=== PATIENT | male | born 2000 | race Caucasian/White ===

== ENCOUNTER 2021-02-18 12:58 | Emergency (ER) | payer MEDICAID, SELFPAY ==
--- NOTE | 2021-02-18 13:00 | DI.RAD_ITS ---
Exam(s) XR FOREARM LT EXAM: XR FOREARM LT CLINICAL HISTORY: window glass vs arm. TECHNIQUE: 2D digital imaging was performed of the left forearm. Four views were obtained. AP and lateral views were obtained. COMPARISON: No exams were available for comparison FINDINGS: BONES: No acute fracture is present. No bony destructive lesion is seen. Visualized portion of elbow and wrist joints are unremarkable. SOFT TISSUE: There is a laceration at the anterior aspect of the distal forearm. On the lateral view timed at 1339 hours there is a rounded opacity in the soft tissues of the anterior distal forearm de ep to the laceration. This was not identified on the AP view from the same time and was felt to be a rtifact or an external object. The patient was brought back to the radiology department and repeat v iews of the forearm were obtained which show no radiopaque foreign body present. IMPRESSION: 1. Skin laceration at the anterior aspect of the distal left forearm. 2. No radiopaque foreign body. 3. Findings were discussed with the emergency department on the date of the examination. DATA REPOSITORY: RADIATION DOSE DELIVERED:
[2021-02-18 13:02] VITALS: BP 138/117; PULSE 64; RESP 18; TEMP 36.8; O2SAT 97
--- NOTE | 2021-02-18 13:48 | W.ED.GENAD ---
Discharge Plan Disposition Patient Disposition: HOME Condition: Stable Discharge Details Clinical Impression: Forearm laceration Primary Care Provider: Unknown,Unknown ED Provider: Stefan Young Home Meds and New Rx's Prescriptions: No Action No Known Home Meds RF: 0 Discharge Instructions Instructions: Laceration (ED) Additional Instructions: Laceration repaired without any difficulty. Rest, elevate, cool compresses every 2 hours for 20 minutes. [id number] Tylenol and/or Motrin as directed for discomfort. Please watch for new or worsening symptoms and return to the ER for any concerns. Tetanus status was updated today. Sutures should be removed in the next 10-14 days, please return to the ER at that time Discharge Data Discharge Date/Time-TO BE ENTERED AT DEPARTURE: 02/18/21 15:30 Medical Decision Making 20-year-old gentleman, [id number], tetanus status up-to-date presents for a left forearm laceration. Neuro, vascular, tendon intact. No obvious foreign body. Will obtain x-ray of the forearm to rule out potential foreign body and/or bony abnormality. Will update tetanus and the laceration will require repair. X-ray unremarkable, spoke with in-house radiologist. Tetanus updated. Laceration repaired without difficulty. Patient tolerated well. Antibiotic dressing then applied. Imaging Data Radiologic Study: Attestation: I personally reviewed and interpreted this imaging study as follows: Imaging: X-Ray Radiologist's impression: Exam(s) XR FOREARM LT EXAM: XR FOREARM LT CLINICAL HISTORY: window glass vs arm. TECHNIQUE: 2D digital imaging was performed of the left forearm. Four views were obtained. AP and lateral views were obtained. COMPARISON: No exams were available for comparison FINDINGS: BONES: No acute fracture is present. No bony destructive lesion is seen. Visualized portion of elbow and wrist joints are unremarkable. SOFT TISSUE: There is a laceration at the anterior aspect of the distal forearm. On the lateral view timed at 1339 hours there is a rounded opacity in the soft tissues of the anterior distal forearm deep to the laceration. This was not identified on the AP view from the same time and was felt to be artifact or an external object. The patient was brought back to the radiology department and repeat views of the forearm were obtained which show no radiopaque foreign body present. IMPRESSION: 1. Skin laceration at the anterior aspect of the distal left forearm. 2. No radiopaque foreign body. 3. Findings were discussed with the emergency department on the date of the examination. HPI General Mode of arrival: ambulatory. Date/Time Provider Initiated Documentation: 02/18/21 13:08. Limitations to Documentation: no limitations. Information obtained by: patient. HPI Narrative: This is a 20-year-old male, [id number], denies any significant past medical history, tetanus status not up-to-date, presenting for a left forearm laceration. Patient states that a window accidentally fell, the glass broke cutting his left forearm. Reports the pain is mild to moderate but worse with movement. Reports mild localized tingling but no true numbness or weakness. Denies active bleeding or obvious foreign body. Denies any other injury. Did not take any medication for his symptoms Related Data Home Medications Medication Instructions Recorded Confirmed Unknown [No Known Home Meds] 02/18/21 02/18/21 Allergies Allergy/AdvReac Type Severity Reaction Status Date / Time No Known Allergies Allergy Unverified 02/18/21 13:05 General Stated Complaint: Laceration LISA: 4 Review of Systems Constitutional Constitutional: Denies fever(s) and Denies weakness Gastrointestinal Gastrointestinal: Denies nausea and Denies vomiting Musculoskeletal Musculoskeletal: Denies arthralgias, Denies numbness and Reports tingling Integumentary/Breasts Skin/Breast: Denies erythema Neurologic Neurologic: Denies numbness, Reports tingling and Denies weakness [facility] Social History Smoking/Tobacco Use Status: Current every day Tobacco Type: cigarettes Smoking risk assessment performed?: Yes Alcohol Intake: never Drug use: Daily Substance use type: marijuana Do you feel safe at home: Yes Do you feel safe in your relationship?: Yes Exam Const General: cooperative, healthy appearing, comfortable, no acute distress and anxious Orientation: alert and awake HENMT Head: normal to inspection, normocephalic and atraumatic Eyes General: appearance normal, both eyes and all related structures Conjunctivae: conjunctivae normal Neck Neck: normal visual inspection, trachea midline and supple Resp Effort & Inspection: normal respiratory effort and able to speak in complete sentences Cardio Rate: regular rate Rhythm: regular rhythm Skin General skin exam: no rashes or lesions noted Neuro General: patient alert, patient awake, moves all extremities and no focal motor deficits Cognition: normal cognition Speech: speech normal Gait: normal gait Motor: muscle tone normal throughout and strength 5/5 throughout Sensory Exam: no sensory deficits noted Extrem General: full ROM and capillary refill normal Left upper extremity: full ROM and normal capillary refill Elbow/forearm/wrist images: 1. There is a slightly irregular 4.5 cm laceration, no active bleeding. There is no obvious foreign body. Diffuse mild discomfort. Neuro, vascular, tendon intact, identified strength of the elbow, wrist, hands. Normal radial pulse and capillary refill. Psych Appearance: grossly normal Mental Status: mental status grossly normal Course Vital Signs Vital signs: Vital Signs Temperature 36.8 C 02/18/21 13:02 Pulse 64 02/18/21 13:02 Respiratory Rate 18 02/18/21 13:02 Blood Pressure 138/117 H 02/18/21 13:02 Pulse Oximetry 97 02/18/21 13:02 Temperature 36.8 C 02/18/21 13:02 Temperature Source Temporal Artery Scan 02/18/21 13:02 Pulse 64 02/18/21 13:02 Respiratory Rate 18 02/18/21 13:02 Respiratory Effort Non-Labored 02/18/21 13:05 Blood Pressure 138/117 H 02/18/21 13:02 Blood Pressure Position Sitting 02/18/21 13:02 Pulse Oximetry 97 02/18/21 13:02 Oxygen Delivery Method Room Air 02/18/21 13:02 Oxygen Flow Rate 0 02/18/21 13:02 Pain Level 10 02/18/21 13:07 Procedures Laceration Laceration 1: Site: upper extremity Side (If applicable): left Size (cm): 4.5 Description: irregular and clean Depth: simple, single layer Local Anesthetic: Lidocaine 1%, Bupivicaine 0.5%, with Epi and other anesthetic ([id number] mixture) Amount of anesthesia used (mL): 8 Pre-repair: wound explored, irrigated extensively and deep structures intact Size (cm): 4-0 Number of sutures: 9 Technique: simple, interrupted
[2021-02-18] MEDS: Bupivacaine 0.5% Pres-Free 30 ML VIAL (13:49)
== END 2021-02-18 15:30 | disposition home or self-care (01) ==
LOC: ER 15:10
PROVIDERS: Emergency Provider Physician Assistant
DX: S51.812A Laceration without foreign body of left forearm, initial encounter (principal); W25.XXXA Contact with sharp glass, initial encounter
CPT/HCPCS: 12002; 90471; 99281; 73090

== ENCOUNTER 2021-02-28 02:01 | Emergency (ER) | payer MEDICAID, SELFPAY ==
[2021-02-28 02:13] VITALS: BP 128/73; PULSE 64; RESP 20; TEMP 36.6; O2SAT 97
--- NOTE | 2021-02-28 02:20 | ED.GENADUL_ITS ---
Discharge Plan Disposition Patient Disposition: HOME Condition: Good Discharge Details Clinical Impression: Posttraumatic wound infection Primary Care Provider: Unknown,Unknown ED Provider: Brett Whittaker Meds and New Rx's Prescriptions: New cephalexin 500 mg capsule 500 mg PO Q8H Qty: 20 RF: 0 Discharge Instructions Instructions: Wound Infection (ED) Additional Instructions: Gently clean the wound once to twice a day with half peroxide/half water. Reapply dressing and keep covered. Take antibiotic as directed and complete the course. Use ibuprofen or acetaminophen for pain. Keep your arm elevated. Return to the ED for worsening pain, redness, fever. Wound edges may separate as the laceration is not completely healed. If that occurs simply keep very cl denilson. Will heal from inside out. Follow-up with primary care next week for wound check. Medical Decision Making Patient with posttraumatic wound infection. Previous x-ray did not show foreign body. Patient sustained a cut on glass. Procedure note reviewed. Sutures removed by me. Wound did not immediately dehisce. Did open slightly. There is no fluctuance or drainage at this time. Wound cleansed and dressed by nursing. Patient started on cephalexin 500 mg 3 times a day. Wound and dressing care twice a day. Keep arm elevated. Return to ED if worse. Wound check by PCP next week. HPI General Mode of arrival: ambulatory . Date/Time Provider Initiated Documentation: 02/28/21 02:06 . Limitations to Documentation: no limitations . Information obtained by: patient, RN notes reviewed and old records reviewed . HPI Narrative: Patient presents to the ED with pain and redness around previous laceration that was repaired here on the . Patient reports that he started to have pain and redness about 3 days ago. It has become worse and at times drained pus-like material. He has been using ibuprofen and acetaminophen for pain. He denies fever or feeling unwell otherwise. Pain not allowing him to sleep tonight so he came in for evaluation. Related Data Home Medications Medication Instructions Recorded Confirmed cephalexin 500 mg PO Q8H #20 cap 02/28/21 Previous Rx's Medication Instructions Recorded cephalexin 500 mg PO Q8H #20 cap 02/28/21 Allergies Allergy/AdvReac Type Severity Reaction Status Date / Time No Known Allergies Allergy Unverified 02/28/21 02:16 General Stated Complaint: Recheck LISA: 5 Review of Systems Narrative: As documented in HPI otherwise negative as below. Const: no fever, chills, weakness Resp: no cough, SOB, pleuritic pain CV: no CP, diaphoresis, edema, syncope GI: no abdominal pain, nausea, vomiting, diarrhea Neuro: no headache, numbness, focal weakness, confusion [facility] Medical History No significant past medical history Surgical History No significant past surgical history Social History Smoking/Tobacco Use Status: Current every day Tobacco Type: cigarettes Smoking risk assessment performed?: Yes Alcohol Intake: never Drug use: Daily Substance use type: marijuana Do you feel safe at home: Yes Do you feel safe in your relationship?: Yes Exam Narrative Exam Narrative: Const: WDWN male in NAD. HEENT: NC/AT. Normal facial exam. Eyes: Normal conjunctiva and sclera. Neck: Supple. Trachea midline. Lungs: Normal respiratory effort. Cor: Good radial pulses. Neuro: A+O x 3. Normal speech, mentation, gait. Cranial nerves II - XII grossly intact. No gross motor or sensory deficit. Ext: No C/C/E. Normal range of motion throughout. Skin: Warm and dry with left forearm laceration with sutures in place. Surrounding erythema and induration approximately 2 cm around the wound. Clear serous drainage noted. No pus. Course Vital Signs Vital signs: Vital Signs Temperature 97.9 F 02/28/21 02:13 Pulse 64 02/28/21 02:13 Respiratory Rate 20 02/28/21 02:13 Blood Pressure 128/73 02/28/21 02:13 Pulse Oximetry 97 02/28/21 02:13 Temperature 97.9 F 02/28/21 02:13 Temperature Source Temporal Artery Scan 02/28/21 02:13 Pulse 64 02/28/21 02:13 Respiratory Rate 20 02/28/21 02:13 Respiratory Effort 02/28/21 02:17 Blood Pressure 128/73 02/28/21 02:13 Blood Pressure Position Sitting 02/28/21 02:13 Pulse Oximetry 97 02/28/21 02:13 Oxygen Delivery Method Room Air 02/28/21 02:13 Oxygen Flow Rate 0 02/28/21 02:13 Pain Level 5 02/28/21 02:13
[2021-02-28] MEDS: Hydrogen Peroxide 3% 480 ML BTL (02:41)
[2021-02-28] MEDS: Cephalexin 500 MG CAP (02:41)
== END 2021-02-28 03:11 | disposition home or self-care (01) ==
PROVIDERS: Emergency Provider Emergency Medicine
DX: S51.812D Laceration without foreign body of left forearm, subsequent encounter (principal); L08.89 Other specified local infections of the skin and subcutaneous tissue; W25.XXXD Contact with sharp glass, subsequent encounter; Z48.02 Encounter for removal of sutures
CPT/HCPCS: 99283; 99282

== ENCOUNTER 2021-04-11 15:03 | Emergency (ER) | payer MEDICAID, SELFPAY ==
[2021-04-11 15:18] VITALS: BP 117/67; PULSE 79; RESP 16; TEMP 36.3; O2SAT 100
--- NOTE | 2021-04-11 15:27 | ED.GENADUL_ITS ---
Discharge Plan Disposition Patient Disposition: HOME Condition: Stable Discharge Details Clinical Impression: Mood disorder Primary Care Provider: Unknown,Unknown ED Provider: Lissa Lezama Home Meds and New Rx's Prescriptions: No Action No Known Home Meds RF: 0 Discharge Instructions Additional Instructions: Please follow-up with [facility], the counselor is placing a referral to establish with burt umaña for medication therapy Please return with any thoughts of wanting to harm self, others, or should you have worsening of your symptoms Referrals: [facility] [Provider Group] Discharge Data Discharge Date/Time-TO BE ENTERED AT DEPARTURE: 04/11/21 18:26 Medical Decision Making <REHAN Schmitt - Last Filed: 04/11/21 16:21> Is a 20-year-old male, past medical history of mood disorder and bipolar, has not been on medication for the past year, presenting seeking a mental health evaluation. Patient denies any suicidal or homicidal ideations and reports that he feels safe. He has not requesting hospitalization. He states that he is simply requesting evaluation to help expedite outpatient care through a psychiatric team, he does believe that getting back on medication would be beneficial. He admits to smoking cigarettes but denies alcohol or drug use. Denies recent illness or trauma. I do not believe that he requires any laboratory values for a medical screening evaluation. In my opinion he is medically cleared. I do not believe that he requires a CPSO or interim safety plan. I have requested a mental health evaluation. Medical Records Medical records reviewed: Yes I reviewed the patient's medical records. <REHAN Simental - Last Filed: 04/11/21 21:32> Care was accepted from Stefan Young, physician video library assistant pending mental health assessment Patient was assessed by ESTIVEN Aviles counselor who will place a consult order in for patient to receive psychiatric care Patient denies any suicidal or homicidal ideation He feels comfortable being discharged for outpatient follow-up at this time He is given low threshold to return should he have new or worsening complaints and reasons to return urgently were discussed with patient and patient expressed understanding He is alert, oriented, of decisional capacity HPI <REHAN Schmitt - Last Filed: 04/11/21 16:21> General Mode of arrival: ambulatory . Date/Time Provider Initiated Documentation: 04/11/21 15:26 . Limitations to Documentation: no limitations . Information obtained by: patient . HPI Narrative: This is a 20-year-old male, past medical history of bipolar and mood disorder, has not been on any medications for at least 1 year, presenting to the ER requesting a mental health evaluation for worsening mood swings, verbal outburst, and anxiety. He is unaware of any obvious triggers. Patient reports that he feels safe, denies any suicidal or homicidal ideations. Patient states that he is not seeking hospitalization. He denies recent illness or trauma. He tells me that he is helping to talk with mental health and establish local care and hopefully get back on his previous medications. Patient reports smoking cigarettes but denies any drug or alcohol use. Related Data Home Medications Medication Instructions Recorded Confirmed Unknown [No Known Home Meds] 04/11/21 04/11/21 Allergies Allergy/AdvReac Type Severity Reaction Status Date / Time methylphenidate Allergy Unverified 04/11/21 15:26 [From [facility]] General Stated Complaint: PsychEval LISA: 2 Review of Systems <REHAN Schmitt - Last Filed: 04/11/21 16:21> Constitutional Constitutional: Denies fever(s) Cardiovascular Cardiovascular: Denies chest pain and Denies dyspnea Respiratory Respiratory: Denies cough and Denies dyspnea Gastrointestinal Gastrointestinal: Denies abdominal pain, Denies nausea and Denies vomiting Integumentary/Breasts Skin/Breast: Denies rash Psychiatric Psychiatric: Reports anxiety, Denies depression, Reports mood swings, Denies homicidal ideation and Denies suicidal ideation [facility] <REHAN Schmitt - Last Filed: 04/11/21 16:21> All Active Problems (Updated 04/11/21 @ 18:14 by REHAN Simental) Mood disorder (Acute) Forearm laceration (Acute) Posttraumatic wound infection (Acute) Medical History No significant past medical history Surgical History No significant past surgical history Social History Smoking/Tobacco Use Status: Current every day Tobacco Type: cigarettes Smoking risk assessment performed?: Yes Alcohol Intake: never Drug use: Daily Substance use type: marijuana Do you feel safe at home: Yes Do you feel safe in your relationship?: Yes Exam <REHAN Schmitt Last Filed: 04/11/21 16:21> Const General: cooperative, healthy appearing, comfortable and no acute distress Orientation: alert, awake and oriented x3 HENGA Head: normal to inspection, normocephalic and atraumatic Face and sinus: normal facial exam Mouth: moist mucous membranes Eyes General: appearance normal, both eyes and all related structures Conjunctivae: conjunctivae normal Neck Neck: normal visual inspection, trachea midline and supple Resp Effort & Inspection: normal respiratory effort and able to speak in complete sentences Auscultation: clear to auscultation bilaterally Cardio Rate: regular rate Rhythm: regular rhythm Skin General skin exam: no rashes or lesions noted Neuro General: patient alert, patient awake, patient oriented x3, moves all extr emities and no focal motor deficits Cognition: normal cognition Speech: speech normal Gait: normal gait Motor: muscle tone normal throughout Sensory Exam: no sensory deficits noted Extrem General: full ROM Psych Appearance: grossly normal Mental Status: mental status grossly normal Speech and Movement: speech and movement normal Mood: congruent mood Affect: normal affect Attitude: cooperative Thought Process: normal Thought Content: normal Insight: insight good Judgment: judgment good Course <REHAN Schmitt Last Filed: 04/11/21 16:21> Vital Signs Vital signs: Vital Signs Temperature 36.3 C L 04/11/21 15:18 Pulse 79 04/11/21 15:18 Respiratory Rate 16 04/11/21 15:18 Blood Pressure 117/67 04/11/21 15:18 Pulse Oximetry 100 04/11/21 15:18 Temperature 36.3 C L 04/11/21 15:18 Temperature Source Skin 04/11/21 15:18 Pulse 79 04/11/21 15:18 Respiratory Rate 16 04/11/21 15:18 Respiratory Effort Non-Labored 04/11/21 15:18 Blood Pressure 117/67 04/11/21 15:18 Blood Pressure Position Sitting 04/11/21 15:18 Pulse Oximetry 100 04/11/21 15:18 Oxygen Delivery Method Room Air 04/11/21 15:18 Oxygen Flow Rate 0 04/11/21 15:18 Pain Level 0 04/11/21 15:18 Sign Out <REHAN Schmitt - Last Filed: 04/11/21 16:21> Sign Out Data: Sign Out Comment: 20-year-old gentleman with past medical history of mood disorder and bipolar disorder, not medicated for 1 year, presenting for a mental health evaluation and to establish local mental health care. He feels safe, denies any suicidal or homicidal ideations. He is hoping eventually to get back on his medications. He has no acute medical concerns or complaints. Last updated by Stefan Young PA at 04/11/21 15:44
--- NOTE | 2021-04-11 18:29 | PDOC.MHCN_ITS ---
Date of service: 04/11/21 Time of Service: 17:00 Mental Health Crisis Note Presenting Issue How did you arrive at the ED and why did you come: The client presented to [facility] ED seeking expedited outpatient treatment for reported mood swings and anxiety. Precipitating Factors The client presents in clean season appropriate attire and appears adequately groomed. He is fully alert and oriented to time, person, place, and circumstance. Eye contact is excellent. He is behaviorally appropriate and engages freely throughout assessment. He reports decreased appetite, normal sleep. Insight and judgment are good. Thought process is normal. Speech is unpressured, normal rate and tone. He reports mood as OK with euthymic affect. No delusions or hallucinations. He reports experiencing significant mood swings, anxiety, and verbal outbursts for the past year. He states I get in my own head. Sometimes I flip out and lose it and it's not OK. It makes me feel like a burden. He reports being kicked out of his home and moving in with his girlfriend. He expresses concern that his outbursts negatively impact his relationships and upcoming employment. He denies current SI/HI/SIB, intent or plan. He reports feeling safe at home and is not interested in in-patient level of care at this time and would to explore outpatient options. Disposition BEHAVIOR: Calm, appropriate EYE CONTACT: Excellent MOOD: OK AFFECT: Euthymic APPETITE: Decreased SLEEP(trouble falling/staying asleep: No reported issues Plan The client will be discharged home. Intake packet has been completed and [facility] referral will be submitted for counseling, psychiatry, and medication management. The client has been encouraged to contact the agency with any questions and has agreed to call 911 if safety becomes a concern. Updated attending ED provider(s) on discharge status. Signature Clinician's Name/Title: Jono Quarles [facility] clinician / [facility]
== END 2021-04-11 18:26 | disposition home or self-care (01) ==
PROVIDERS: Emergency Provider Physician Assistant
DX: F31.9 Bipolar disorder, unspecified (principal); F39 Unspecified mood [affective] disorder
CPT/HCPCS: 99284; 99283

== ENCOUNTER 2021-05-05 14:52 | Emergency (ER) | payer MEDICAID, SELFPAY ==
[2021-05-05 14:59] VITALS: BP 103/60; PULSE 93; RESP 14; TEMP 37.1; O2SAT 97
--- NOTE | 2021-05-05 15:03 | W.ED.GENAD ---
Discharge Plan Disposition Patient Disposition: HOME Condition: Good Discharge Details Clinical Impression: Encounter for medical screening examination Primary Care Provider: Unknown,Unknown ED Provider: Victor Hugo Sandoval Home Meds and New Rx's Prescriptions: No Action No Known Home Meds RF: 0 Discharge Instructions Additional Instructions: A clinical care leader will be contacting you shortly. Please follow closely with them to the next steps for further counseling and support. If you notice any worsening of your symptoms, or any new symptoms such as vomiting, diarrhea, fever, chills, shortness of breath, chest pain, numbness, weakness, or fainting , please return immediately to the emergency department for reevaluation. Please follow up with your primary care provider as soon as possible for reassessment and reevaluation. As always, it was a pleasure participating in your medical care today. Medical Decision Making This is a 20-year-old male with no significant past medical history who presents today for evaluation of medical screening exam. Patient had a notable crisis this past weekend, and he was requesting follow-up with a counselor to get his meds restarted. At that time it was decided that the potentially best avenue would be to admit him to the care bed to expedite that. He presents today for evaluation of this, however he also states that I do not feel that I need to go to the care bed at all, I feel safe at home, I just need to get connected with a counselor and have my meds restarted. Patient denies any homicidal or suicidal ideations. He feels comfortable going home. No other complaints at this time. No IV or illicit drug use. No significant alcohol use. No other modifying factors. We will reach out to mental health providers as well as the care bed to facilitate the best plan of action for the patient. Otherwise his exam is notably benign. Patient is medically cleared from my perspective at this time clinically. 3:17 PM Patient was seen and assessed by mental health. They have formulated a plan for continued outpatient management. Patient and mental health agree with this plan. Patient stable for discharge. I have extensively reviewed the treatment plan and discharge instructions with the patient. I have addressed all patient concerns at this time. The patient was made aware of what symptoms to monitor for that would warrant a return to the emergency department. Discussed the plan with the patient, they demonstrate verbal understanding and agreement with our assessment and plan at this time. The documentation in this chart was dictated using [employer] dictation software. Please excuse any dictation errors. HPI General Date/Time Provider Initiated Documentation: 05/05/21 14:53. HPI Narrative: This is a 20-year-old male with no significant past medical history who presents today for evaluation of medical screening exam. Patient had a notable crisis this past weekend, and he was requesting follow-up with a counselor to get his meds restarted. At that time it was decided that the potentially best avenue would be to admit him to the care bed to expedite that. He presents today for evaluation of this, however he also states that I do not feel that I need to go to the care bed at all, I feel safe at home, I just need to get connected with a counselor and have my meds restarted. Patient denies any homicidal or suicidal ideations. He feels comfortable going home. No other complaints at this time. No IV or illicit drug use. No significant alcohol use. No other modifying factors. Related Data Home Medications Medication Instructions Recorded Confirmed Unknown [No Known Home Meds] 04/11/21 04/11/21 Allergies Allergy/AdvReac Type Severity Reaction Status Date / Time methylphenidate Allergy Unverified 04/11/21 15:26 [From Concerta] General LISA: 2 Review of Systems All systems reviewed & are unremarkable except as noted in HPI and below PFSH All Active Problems (Updated 05/05/21 @ 15:16 by Victor Hugo Sandoval DO) Mood disorder (Acute) Encounter for medical screening examination (Acute) Forearm laceration (Acute) Posttraumatic wound infection (Acute) Medical History No significant past medical history Surgical History No significant past surgical history Social History Smoking/Tobacco Use Status: Current every day Tobacco Type: cigarettes Smoking risk assessment performed?: Yes Alcohol Intake: never Drug use: Daily Substance use type: marijuana Do you feel safe at home: Yes Do you feel safe in your relationship?: Yes Exam Narrative Exam Narrative: 1.Const: Well-nourished, Well-developed, appearing stated age 2.Eyes: PERRL, no conjunctival injection, and symmetrical lids. 3.ENT: Atraumatic external nose and ears. Moist MM. Neck: Symmetric, trachea midline, No thyromegaly. 4.CVS: +S1/S2, No murmurs or gallops. Peripheral pulses 2+ and equal in all extremities. Brisk capillary refill in all extremities. 5.RESP: Unlabored respiratory effort. Clear to auscultation bilaterally. No wheezes rales or rhonchi 6.GI: Soft, Nontender/Nondistended, No hepatosplenomegaly. No guarding or rebound. 7.MSK: Normocephalic/Atraumatic, Extremities w/o deformity or ttp No cyanosis or clubbing, Normal movement of all extremities 8.Skin: Warm, Dry. No rashes or lesions. 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 Sensation grossly intact, no focal neurologic deficits. 10.Psych: (AAO) x3. Appropriate mood and affect Course Lab/Test Results Lab/Test Results: Laboratory Tests Range/Units 05/05/21 14:53 COVID-19 Source Cancelled SARS-CoV-2 (PCR) Cancelled
== END 2021-05-05 15:19 | disposition home or self-care (01) ==
PROVIDERS: Emergency Provider Student in an Organized Health Care Education/Training Program
DX: F39 Unspecified mood [affective] disorder (principal)
CPT/HCPCS: 87635; 99283